=== PATIENT | male | born 1960 | race Hispanic/Latino ===

== ENCOUNTER 2018-12-07 06:24 | Day surgery (SDC) | payer MEDICAID ==
[2018-12-07] MEDS ORDERED: Bupivacaine 0.5% Inj(30mL) IJ ONE (06:40)
[2018-12-07] MEDS ORDERED: ceFAZolin 1 GM in Sodium Chloride 0.9% 100 ML IVPB ONE (06:40)
[2018-12-07] MEDS ORDERED: Lidocaine 1% Inj (20ml) IJ ONE (06:40)
--- NOTE | 2018-12-07 06:40 | CP.SDSHP ---
Same Day Surgery H & P - History Proposed Procedure: L hallux ridigus correction with Cartiva implant and cheilectomy Pre-Op Diagnosis: Left Hallux Rigidus - Previous Medical/Surgical History Pain: 4.Moderate Pain - Allergies Allergies: Allergies No Known Allergies Allergy (Verified 12/05/18 10:51) - Physical Exam Vital Signs: Vital Signs 12/07/18 06:36 Pulse Rate 68 Mental Status: Alert & Oriented x3 Neuro: WNL - {Optional Preform as Required} Integument: WNL - Impression Pt. Evaluated Today:Candidate for Anesthesia & Procedure: Yes - Date & Time Date: 12/07/18 Time: 06:58 Short Stay Discharge - Short Stay Discharge Admitting Diagnosis/Reason for Visit: M20.22 Disposition: HOME/ ROUTINE Additional Instructions (Diet, Activity): -Patient in good/stable condition for discharge home -Pt to resume medications per medical reconciliation -Resume regular diet -Please keep dressing clean, dry, & intact to surgical site -Use plastic bag over bandage for showering -Wear post op shoe at all times when ambulating -Call clinic if you see signs of infection (redness, swelling, malodor) -Please make an appointment to see Dr. Stevens in office/clinic within 1 week for post-op check Progress Note/Discharge Note with Instructions: - Patient evaluated bedside in recovery s/p Left foot surgery - After surgical procedure patient in NAD - (+) Void, (+) Appetite - Capillary refill time <3s and NVS intact. - Patient denies complaints at this time. - Post operative instructions and plan of care explained to patient at length. - Patient. acknowledges verbal understanding. - Patient stable for DC per podiatric surgery
--- NOTE | 2018-12-07 06:40 | CP.PCM.PN ---
Subjective - Date & Time of Evaluation Date of Evaluation: 12/07/18 Time of Evaluation: 06:51 - Subjective Subjective: Podiatry SDS note for Dr. Stevens 58 y/o male patient with no significant PMHX seen and evaluated in [facility] for surgery to the left foot. Patient states he has pain to the left hallux, worsened with walking and playing sports. Patient states he has had pain for about 1 year now. Patient denies any other pedal complaints. Patient states he l ast ate or drank around 10 pm. Patient denies any adverse reactions to anesthesia in the past. PMHx: denied by patient Medications: Multivitamins Allergies: NKDFA Objective - Vital Signs/Intake and Output Vital Signs (last 24 hours): Temp Pulse Resp BP Pulse Ox 68 12/07/18 06:36 - Constitutional Appears: Well, Non-toxic, No Acute Distress - Head Exam Head Exam: ATRAUMATIC, NORMOCEPHALIC - Extremities Exam Additional comments: Left Lower Extremity Exam VASC: DP and PT 2/4, CFT less than 3 seconds X 10, no edema, TG within normal limits NEURO: Epicritic and protective sensations intact DERM: mild erythema noted to the 1st MTPJ, no open lesions, no wounds, no IDM, no signs of infection ORTHO: pain with range of motion of the 1st MTPJ, mild crepitus at the 1st MTPJ, pain on palpation to the dorsal aspect of the 1st metatarsal head, no other complaints with ranges of motion - Neurological Exam Neurological Exam: Alert, Awake, Oriented x3 - Psychiatric Exam Psychiatric exam: Normal Affect, Normal Mood Assessment and Plan - Assessment and Plan (Free Text) Assessment: 58 y/o male patient seen in [facility] for left 1st metatarso-phalangeal joint implant procedure Plan: Pt was seen and examined in [facility] Pt NPO status was confirmed All pre-op testing and clearance in chart Pt has exhausted all conservative treatment at this time and is opting for surgical intervention Pt was explained procedure and post-operative course All pt's questions were answered to satisfaction No guarantees were made Pt understands all risks, benefits and complications of procedure Pt will follow-up with Dr. Stevens within 1 week of surgery
[2018-12-07] MEDS ORDERED: Sodium Chloride 0.9% 1,000 ML IV SCH (06:45)
[2018-12-07 06:52] VITALS: BMI 28.1
[2018-12-07] MEDS ORDERED: Bupivacaine HCl 0.5% PF (10 ml) Inj ONE (07:28)
[2018-12-07] MEDS ORDERED: Propofol 10 mg/ml Inj (20 ML) ONE (07:40)
[2018-12-07 07:44] VITALS: RESP 18
[2018-12-07] MEDS ORDERED: Dexamethasone 4 mg/1 ml ONE (09:01)
[2018-12-07] MEDS ORDERED: Oxycodone/Acetaminophen 5/325 mg Tab PO PRN ×2 (09:24)
--- NOTE | 2018-12-07 09:38 | PCM.SURG1 ---
Surgeon's Initial Post Op Note - Surgeon's Notes Surgeon: Dr Stevens Sandwich Counter Attendant: Cass Rey Type of Anesthesia: General LMA Anesthesia Administered By: Dr Pickering Pre-Operative Diagnosis: Left foot hallux limitus/rigidus Operative Findings: see dictation. materials: 3-0/4-0 vicryl, 4-0 monocryl. injectibles: 19 cc of 1:1 mixture of 1% lidocaine plain and .5% marcaine plain pre operatively. 2.5 cc of dexamethasone and 7.5 cc of .5% marcaine plain Post-Operative Diagnosis: same Operation Performed: left foot first metatarsal cheilectomy and first metatarsal phalangeal joint implant application Specimen/Specimens Removed: none Estimated Blood Loss: EBL {In ML}: 1 Blood Products Given: N/A Drains Used: No Drains Post-Op Condition: Good Date of Surgery/Procedure: 12/07/18 Time of Surgery/Procedure: 09:39
[2018-12-07] MEDS ORDERED: HYDROmorphone 0.5 mg/0.5 ml ISec IVP PRN (09:45)
[2018-12-07] MEDS ORDERED: Lactated Ringer's 1,000 ML IV SCH (09:45)
[2018-12-07 17:26] VITALS: BP 128/75; PULSE 70; TEMP 97.6; O2SAT 97
--- NOTE | 2018-12-10 14:16 | OP ---
PROCEDURE DATE: 12/07/2018 PREOPERATIVE DIAGNOSIS: Left foot hallux limitus/rigidus. POSTOPERATIVE DIAGNOSIS: Left foot hallux limitus/rigidus. PROCEDURE PERFORMED: Left foot first metatarsal cheilectomy with first metatarsophalangeal joint implant application. SURGEON: David Stevens DPM ASSISTANTS: Gia Hammond DPM, PGY-3 and Cass Grimaldo DPM, PGY-1. ANESTHESIA: General with local injection. ANESTHESIA ADMINISTERED BY: Yassine Pickering MD INDICATIONS: The patient is a 58-year-old male with the above-mentioned diagnosis. The patient is being treated by Dr. Stevens in her office on an outpatient basis where he has exhausted multiple forms of conservative treatment and the patient seeks surgical intervention at this time. All risks, benefits, and possible complications to the proposed procedure have been explained to the patient at length. The patient verbalized understanding and wishes to proceed. All questions were answered. No guarantees were given nor implied. Consent was signed and n.p.o. status was confirmed prior to bringing the patient to the operating room. DESCRIPTION OF PROCEDURE: The patient was brought into the operating room and placed on the operating room table in a supine position. A well-padded pneumatic ankle tourniquet was applied to the patient's left ankle in supramalleolar position. Once general anesthesia was achieved, a local injection consisting of 19 mL of 1:1 mixture of 0.5% Marcaine plain and 1% lidocaine plain. Once the local anesthesia was achieved, the left foot was then prepped and draped in the usual sterile manner and the procedure began. Attention was directed to the dorsal aspect of the first metatarsal head of the left foot where an approximately 6 cm linear longitudinal incision was made medial and parallel to the tendon of the extensor hallucis longus and involving the contour of the deformity. The incision was deepened into the subcutaneous tissue using a combination of sharp and blunt dissection. Care was taken to identify and retract all vital neurovascular structures. All bleeders were cauterized and ligated as necessary. At this time, a linear L-type capsulotomy was performed over the dorsal aspect of the first metatarsophalangeal joint. The periosteum and capsular structures were then carefully dissected free of their osseous attachments and retracted medially and laterally, thus exposing the head of the first metatarsal into the operative site. Loose bodies were noted. Next, utilizing a sagittal saw, the dorsal and medial prominences were resected and passed off the operative field. All rough edges were then smoothed down with a bone rasp. Next, a 2-mm K-wire was driven in the head of the metatarsal making sure there were 2-mm border around the neck and the sizer was used and it was determined a 10-mm Cartiva implant was going to be used. Next, the reamer was used in the metatarsal head to create a space for implant. The cavity was then irrigated with copious amount of normal saline sterile. The Cartiva implant was then placed centrally in the metatarsal head and it fits well and range of motion was tested and noted to be excellent. The surgical site was irrigated with copious amount of normal sterile saline. The periosteum and capsular structures were reapproximated with #3-0 and 4-0 Vicryl and the subcutaneous tissue was then reapproximated with #4-0 Monocryl in a subcuticular pattern. Postoperative injections consisting of 10 mg of dex and 10 mL of Marcaine was given. Postoperative dressing included Steri-Strip, Betadine, Adaptic, 4x4, Kerlix and Mickey wrap. POSTOPERATIVE CONDITION: The patient tolerated the anesthesia and procedure well with no apparent complications or complaints. The patient was escorted from the operating room to the recovery room with vital signs stable and neurovascular structures intact. The patient will be followed by Dr. Stevens in her office on outpatient basis. Gia Hammond DPM David Stevens DPM
--- NOTE | 2018-12-10 14:28 | RAD ---
Date of service: 12/07/2018 PROCEDURE: Left Foot Radiographs. HISTORY: s/p left foot surgery COMPARISON: None. TECHNIQUE: 3 views obtained. FINDINGS: BONES: Normal. No fracture. JOINTS: Normal. SOFT TISSUES: Normal. OTHER FINDINGS: None. IMPRESSION: Negative study
== END 2018-12-07 18:00 | disposition home or self-care (01) ==
LOC: H.OPSURG 06:24
PROVIDERS: ATTEND Podiatrist Foot & Ankle Surgery
DX: M20.22 Hallux rigidus, left foot (principal); M20.5X2 Other deformities of toe(s) (acquired), left foot
CPT/HCPCS: 28289; 28291; 73630; 97161; G8978; G8979; J0690; J1100; J1170; J1885; J2001; J2405; J2704; J3010; J7030; J7120; L8699